=== PATIENT | male | born 1955 | race Caucasian/White ===

== ENCOUNTER → 2016-05-31 | Outpatient (CLI) | payer MEDICARE, SELFPAY ==
[~2016-05-31] MED LIST: AMITRIPTYLINE H25 MG PO; AZULFIDINE500 MG PO; CELEXA40 MG PO; CHANTIX0.5 MG PO; CITALOPRAM HBR20 MG PO; DONEPEZIL HCL O10 MG SL; FISH OIL1 GM PO; FLOMAX0.4 MG PO; FOLIC ACID1 MG PO; HUMIRA40 MG/0.8 SUBCUT; LOPRESSOR25 MG PO; LOPRESSOR50 MG PO; NEURONTIN300 MG PO; NITROSTAT0.4 MG SL; NORCO 325-5 MG1 TAB PO; NORCO 5-325 TA1 EACH PO; NORVASC5 MG PO; PLAQUENIL200 MG PO; PLAVIX75 MG PO; PREDNISONE10 MG PO; PRILOSEC20 MG PO; PRINIVIL20 MG PO; REBETOL200 MG PO; SOVALDI400 MG PO; ULTRAM50 MG PO; ZOCOR40 MG PO
== END | disposition short-term general hospital (02) ==
LOC: CLRHEU 00:18
DX: M05.9 Rheumatoid arthritis with rheumatoid factor, unspecified (principal); M54.2 Cervicalgia; M54.5 Low back pain; G89.29 Other chronic pain

== ENCOUNTER 2016-06-13 19:39 | Emergency (ER) | payer MEDICARE, SELFPAY ==
[~2016-06-13] VITALS: Ht 162.6 cm; Wt 72.1 kg
[~2016-06-13 19:39] MED LIST changes: -AMITRIPTYLINE H25 MG PO; -DONEPEZIL HCL O10 MG SL; -FLOMAX0.4 MG PO; -NORCO 5-325 TA1 EACH PO
[2016-10-07] MEDS ORDERED: AMITRIPTYLINE H25 MG PO (10:10)
[2016-10-07] MEDS ORDERED: FLOMAX0.4 MG PO (10:11)
[2016-10-07] MEDS ORDERED: DONEPEZIL HCL O10 MG SL (10:11)
[2016-10-07] MEDS ORDERED: NORCO 5-325 TA1 EACH PO (11:03)
== END 2016-06-13 21:20 | disposition short-term general hospital (02) ==
LOC: ER 19:39
DX: M51.36 Other intervertebral disc degeneration, lumbar region (principal); K59.00 Constipation, unspecified; M06.9 Rheumatoid arthritis, unspecified
CPT/HCPCS: J1885

== ENCOUNTER → 2016-07-04 | Outpatient (CLI) | payer MEDICARE, SELFPAY ==
[~2016-07-04] MED LIST changes: +AMITRIPTYLINE H25 MG PO; +DONEPEZIL HCL O10 MG SL; +FLOMAX0.4 MG PO; +NORCO 5-325 TA1 EACH PO
== END | disposition short-term general hospital (02) ==
LOC: CLCARD 09:41 → CLVASC 09:41 → CLCARD 11:47
DX: R93.6 Abnormal findings on diagnostic imaging of limbs (principal); Z95.828 Presence of other vascular implants and grafts